=== PATIENT | female | born 1985 | race Caucasian/White ===

== ENCOUNTER 2016-11-06 21:28 | Emergency (ER) | payer OTHER ==
[2016-11-06 21:50] VITALS: BP 144/92
[2016-11-06] MEDS ORDERED: predniSONE TAB* 20 MG PO ONE (22:26)
--- NOTE | 2016-11-06 22:32 | UC ---
Skin Complaint HPI - HPI Summary HPI Summary: severe case of poison lory x 1 weeks weeping lesions on arm/chest has had bad poison lory in past - History of Current Complaint Chief Complaint: UCSkin Time Seen by Provider: 11/06/16 22:22 Stated Complaint: RASH Hx Obtained From: Patient Hx Last Menstrual Period: 10/16/16 Onset/Duration: Gradual Onset, Lasting Weeks Timing: Constant Onset Severity: Mild Current Severity: Moderate Pain Intensity: 0 Pain Scale Used: 0-10 Numeric Character: Pruritus, Raised Alleviating: OTC Creams/Salves Associated Signs & Symptoms: Positive: Rash - Allergy/Home Medications Allergies/Adverse Reactions: Allergies Allergy/AdvReac Type Severity Reaction Status Date / Time No Known Allergies Allergy Verified 11/06/16 21:49 Home Medications: Home Medications Hydrocortisone 1% CREAM* [Hytone (Topical) 1%*] 1 applic TOPICAL PRN 11/06/16 [ History] Multiple Vitamins W/ Minerals [Multivitamin Adults] 1 tab PO DAILY 11/06/16 [ History Confirmed 11/06/16] Review of Systems Constitutional: Negative Skin: Rash Eyes: Negative ENT: Negative Respiratory: Negative Cardiovascular: Negative Gastrointestinal: Negative Genitourinary: Negative Motor: Negative Neurovascular: Negative Musculoskeletal: Negative Neurological: Negative Psychological: Negative All Other Systems Reviewed And Are Negative: Yes PMH/Surg Hx/FS Hx/Imm Hx Previously Healthy: Yes - Surgical History Surgical History: Yes Surgery Procedure, Year, and Place: CORRECTIVE EYE SURGERY; BILAT COMPARTMENT SURGERY (LOWER LEGS) 2011; *IUD [facility]AR[facility] SAFE TO 3T* - Family History Known Family History: Positive: Hypertension - Social History Alcohol Use: None Substance Use Type: None Smoking Status (MU): Never Smoked Tobacco Physical Exam Triage Information Reviewed: Yes Appearance: Well-Appearing Vital Signs: Initial Vital Signs Temp 97.8 F 11/06/16 21:46 Pulse 76 11/06/16 21:46 Resp 16 11/06/16 21:46 BP 144/92 11/06/16 21:46 Pulse Ox 100 11/06/16 21:46 Vital Signs Reviewed: Yes Eyes: Positive: Conjunctiva Clear ENT: Positive: Hearing grossly normal. Negative: Nasal congestion, Nasal drainage, Trismus, Muffled/hoarse voice Neck: Positive: Supple, Nontender Respiratory: Positive: Lungs clear, Normal breath sounds, No respiratory distress Cardiovascular: Positive: RRR, No Murmur Musculoskeletal: Positive: ROM Intact, No Edema Neurological: Positive: Alert Psychological Exam: Normal Skin Exam: Normal Course/Dx - Diagnoses Provider Diagnoses: poison lory Discharge - Discharge Plan Condition: Stable Disposition: HOME Prescriptions: predniSONE TAB* [Deltasone TAB*] 10 - 60 mg PO DAILY #43 tab Patient Education Materials: Poison Lory (ED) Referrals: Non Staff,Doctor [Primary Care Provider] - Additional Instructions: cool compresses with epsom salts
== END 2016-11-06 22:35 | disposition home or self-care (01) ==
LOC: UCEAST 21:28
DX: L23.7 Allergic contact dermatitis due to plants, except food (principal)
CPT/HCPCS: 99212; G0463; J7512